=== PATIENT | female | born 1985 | race Caucasian/White ===

== ENCOUNTER 2016-08-18 15:28 | Emergency (ER) | payer OTHER ==
[2016-08-18] MEDS ORDERED: SUMAtriptan 6 MG/0.5 ML VIAL SC ONE (15:58)
[2016-08-18] MEDS ORDERED: LORazepam 2 MG/ML INJ IVP ONE ×2 (16:20→17:15)
[2016-08-18] MEDS ORDERED: NS 1,000 ML IV ONE (16:20)
[2016-08-18] MEDS ORDERED: DEXAMETHASONE 10 MG/ML VIAL IVP ONE (16:20)
[2016-08-18] MEDS ORDERED: KETOROLAC 30 MG/1 ML SDV IVP ONE ×2 (16:20→17:13)
[2016-08-18] MEDS ORDERED: METOCLOPRAMIDE 10 MG/2 ML VIAL IVP ONE ×2 (16:20→17:13)
--- NOTE | 2016-08-18 16:20 | EDPHY ---
H & P Stated Complaint: ROSAS - Hx of Migraines - Personal History LMP (Females 10-55): Irregular Current Tetanus Diphtheria and Acellular Pertussis (TDAP): Yes Tetanus Vaccine Date: 09/24/2015 - Medical/Surgical History Hx Asthma: No Hx Chronic Respiratory Disease: No Hx Diabetes: No Hx Cardiac Disease: No Hx Renal Disease: No Hx Cirrhosis: No Hx Alcoholism: No Hx HIV/AIDS: No Hx Splenectomy or Spleen Trauma: No Other PMH: CELIAC DISEASE, STRICT GLUTEN FREE DIET; PREVIOUS C/S, Migraines - Social History Smoking Status: Never smoked Time Seen by Provider: 08/18/16 15:43 HPI/ROS: CHIEF COMPLAINT: " migraine headache" HISTORY OF PRESENT ILLNESS: 30-year-old female complaining of holocephalic migraine-like headache since this morning. Non thunderclap. Positive photophobia. Positive audio phobia positive nausea. No vomiting. No gait instability. No slurred speech. She notes over the past several days daily headache similar to her usual migraine has had intermittent relief with oral Imitrex. She has taken 25 mg of Oral Imitrex within the past 24 hours. PRIMARY CARE PROVIDER:Dr. Yuli Knott REVIEW OF SYSTEMS: A ten point review of systems was performed and is negative with the exception of the items mentioned in the HPI PAST MEDICAL & SURGICAL HISTORY: migraine headache SOCIAL HISTORY: nonsmoker FAMILY HISTORY: positive familial history of migraines, mother PHYSICAL EXAM (Prior to examination, patient consented to physical exam, hands were washed and my usual and customary physical exam procedures followed) 1) GENERAL: Well-developed, well-nourished, alert and oriented. Appears uncomfortable, averse to light. Sunglasses on in a darkened room 2) HEAD: Normocephalic, atraumatic 3) HEENT: Pupils equal, round, reactive to light bilaterally. Sclera anicteric. Positive photophobia. No tearing. No Jenny's 4) NECK: Full range of motion, no meningeal signs. 5) LUNGS: Clear auscultation bilaterally 6) HEART: Regular rate and rhythm, no murmur, no heave, no gallop. 7) ABDOMEN: No guarding, no rebound, no focal tenderness, 8) MUSCULOSKELETAL: No peripheral edema or discoloration. 9) BACK: No CVA tenderness, no midline vertebral tenderness, no fluctuance, no step-off, no obvious trauma, no visual or palpable abnormality. 10) SKIN: No rash, no petechiae. 11) NEURO: Awake, alert, and oriented to person, place and time. Answers questions appropriately. There were no obvious focal neurologic abnormalities. No cerebellar dysfunction. Normal steady gait. Upper and lower extremities bilaterally with strength 5 / 5, reflexes 2+.. DIFFERENTIAL DIAGNOSIS: In no particular order, including but not limited to subarachnoid hemorrhage, migraine headache, tension headache and infectious causes such as meningitis, pharyngitis and sinusitis. The patient understands that this diagnosis is provisional and can never be 100% accurate. Usual and customary warnings were given concerning the clinical impression and all the patient's questions were answered. The patient was instructed to return to the emergency department should her symptoms worsen or return, or develop any new symptoms, otherwise to followup as directed in discharge instructions. This is a partial list of diagnoses considered. These considerations are based on history, physical exam, past history and reassessment. (Jordin Rodriguez) Constitutional: Initial Vital Signs Temperature (C) 36.6 C 08/18/16 15:51 Heart Rate 83 08/18/16 15:51 Respiratory Rate 16 08/18/16 15:51 Blood Pressure 127/85 H 08/18/16 15:51 O2 Sat (%) 98 08/18/16 15:51 O2 Delivery Mode Room Air O2 (L/minute) 2 Allergies/Adverse Reactions: ferrous fumarate [From Bio-35, Gluten Free] Allergy (Verified 01/21/11 06:00) folic acid [From Bio-35, Gluten Free] Allergy (Verified 01/21/11 06:00) gluten Allergy (Verified 10/23/15 01:47) Herbal Complex No. 175 [From Bio-35, Gluten Free] Allergy (Verified 01/21/11 06: 00) lutein [From Bio-35, Gluten Free] Allergy (Verified 01/21/11 06:00) lycopene [From Bio-35, Gluten Free] Allergy (Verified 01/21/11 06:00) multivitamin with calcium, other mi [From Bio-35, Gluten Free] Allergy ( Verified 01/21/11 06:00) Home Medications: Medication Instructions Recorded Vit27&Calcium/Iron/FA 1 each PO DAILY 10/17/15 [] Hydrocodone/APAP 5/325 [[place] 1 - 2 tab PO Q4 PRN #30 tab 10/26/15 5/325 (*)] Ibuprofen [Motrin (*)] 600 mg PO Q6 PRN #30 tab 10/26/15 Iron Polysacch/Iron Heme Polyp 28 mg PO BID #0 tab 10/26/15 [Bifera] Ondansetron Odt [Zofran Odt] 4 mg PO Q4PRN PRN #7 tab 08/18/16 Medical Decision Making ED Course/Re-evaluation: 3:58 p.m.: This patient has a nonfocal exam, describes history of chronic migraine like headaches for which she takes oral Imitrex which she has not used the maximum dose of yet today. Here in the ER will attempt an subcutaneous dose of Imitrex and re-evaluate. 4:25 p.m.: Re-evaluation after subcutaneous Imitrex notes significant decrease in pain however nausea continues. Will administer further medication ( Jordin Rodriguez) 1815: feels much better, ready to go home. (Karen Gao) - Data Points Medications Given: Discontinued Medications Dexamethasone (Decadron Injection) 10 mg IVP EDNOW ONE Stop: 08/18/16 16:21 Last Admin: 08/18/16 17:12 Dose: 10 mg Diphenhydramine HCl (Benadryl Injection) 25 mg IVP EDNOW ONE Stop: 08/18/16 17:11 Last Admin: 08/18/16 17:30 Dose: Not Given Sodium Chloride (Ns) 1,000 mls @ 0 mls/hr IV ONCE ONE PRN Reason: Wide Open Stop: 08/18/16 16:21 Last Admin: 08/18/16 17:11 Dose: 1,000 mls Ketorolac Tromethamine (Toradol) 30 mg IVP EDNOW ONE Stop: 08/18/16 16:21 Last Admin: 08/18/16 17:15 Dose: 30 mg Ketorolac Tromethamine (Toradol) 30 mg IVP EDNOW ONE Stop: 08/18/16 17:14 Last Admin: 08/18/16 17:16 Dose: Not Given Lorazepam (Ativan Injection) 1 mg IVP EDNOW ONE Stop: 08/18/16 16:21 Last Admin: 08/18/16 17:15 Dose: 1 mg Lorazepam (Ativan Injection) 1 mg IVP EDNOW ONE Stop: 08/18/16 17:16 Last Admin: 08/18/16 17:16 Dose: Not Given Metoclopramide HCl (Reglan Injection) 10 mg IVP EDNOW ONE Stop: 08/18/16 16:21 Last Admin: 08/18/16 17:12 Dose: 10 mg Metoclopramide HCl (Reglan Injection) 10 mg IVP EDNOW ONE Stop: 08/18/16 17:14 Last Admin: 08/18/16 17:16 Dose: Not Given Sumatriptan Succinate (Imitrex Sc Injection) 6 mg SC EDNOW ONE Stop: 08/18/16 15:59 Last Admin: 08/18/16 16:15 Dose: 6 mg Departure - Departure Disposition: Home, Routine, Self-Care Clinical Impression: Headache Qualifiers: Headache type: other headache syndrome Qualified Code(s): G44.89 - Other headache syndrome Condition: Good Instructions: Migraine Headache (ED) Additional Instructions: RETURN TO THE ED IMMEDIATELY IF YOUR HEADACHE WORSENS, IF YOU DEVELOP A FEVER , NECK PAIN OR NECK STIFFNESS, OR IF YOU BECOME CONFUSED OR ABNORMALLY DROWSY. Referrals: Yuli Knott MD [Primary Care Provider] - 1-2 days without fail Prescriptions: Ondansetron Odt [Zofran Odt] 4 mg PO Q4PRN PRN #7 tab PRN Reason: Nausea
[2016-08-18 18:13] VITALS: BP 121/90; PULSE 74; RESP 18; TEMP 97.5; O2SAT 98
== END 2016-08-18 18:18 | disposition home or self-care (01) ==
DX: G44.89 Other headache syndrome (principal)
CPT/HCPCS: 96374; J1885; J2060; J2765; J3030